=== PATIENT | male | born 1995 | race Caucasian/White ===

== ENCOUNTER 2018-04-24 11:01 | Emergency (ER) | payer SELFPAY ==
[2018-04-24] MEDS ORDERED: Dexamethasone 4 mg/ml Vial ONE (11:25)
[2018-04-24] MEDS ORDERED: Magnesium 2 GM/50 ML BAG (IN WATER) ONE (11:25)
[2018-04-24] MEDS ORDERED: methylPREDNISolone Sod Succ/PF 125 MG/2 ML VIAL ONE (11:27)
[2018-04-24 11:44] LABS: #Eosinphils 0.3 thou/uL (0.0-0.7); #Lymphocytes 1.2 thou/uL (1.20-3.40); #Monocytes 0.7 thou/uL (0.11-0.59); #Neutrophils 8.6 thou/uL (1.40-6.50); %Basophils 0.4 % (0.0-1.0); %Eosinophils 2.7 % (0.0-10.0); %Lymphocytes 11.3 % (21.0-51.0); %Monocytes 6.2 % (0.0-10.0); %Neutrophils 79.5 % (42.0-75.0); Hemoglobin 17.9 g/dL (14.0-18.0); Mean Corpuscular HGB CONC 32.9 g/dL (32.0-36.0); Mean Corpuscular Volume 91.2 fL (78.0-98.0); Mean Platelet Volume 6.9 fL (7.4-10.4); Platelet Count 231 thou/uL (130-400); RBC Distribution Width 12.6 % (11.5-14.5); Red Blood Cell (RBC) Count 5.96 mill/uL (4.70-6.10); White Blood Cell (WBC) Count 10.8 thou/uL (4.8-10.8)
--- NOTE | 2018-04-24 12:04 | RAD ---
FRONTAL VIEW CHEST: Date: 04/24/18 COMPARISON: 02/18/14. INDICATION: Difficulty breathing, new onset. FINDINGS: Comparing to 02/18/14, no significant interval change identified. There are leads overlying the chest , limiting visualization. IMPRESSION: No focal consolidation. POS: [facility]
[2018-04-24 12:10] LABS: ALT (SGPT) 13 U/L (8-55); AST (SGOT) 14 U/L (5-34); Albumin 5.1 g/dL (3.5-5.0); Alkaline Phosphatase 73 U/L (40-150); Anion Gap 12 mmol/L (10-20); BUN (Urea Nitrogen) 9 mg/dL (8.9-20.6); Bilirubin, Total 0.7 mg/dL (0.2-1.2); CK (CPK) 156 U/L (30-200); Calc. Creatinine Clearance 0 mL/min (70-130); Calcium 10.2 mg/dL (7.8-10.44); Carbon Dioxide 28 mmol/L (22-29); Chloride 106 mmol/L (98-107); Estimated GFR-MDRD Greater than 90; Globulin 2.7 g/dL (2.4-3.5); Glucose 104 mg/dL (70-105); Potassium 4.3 mmol/L (3.5-5.1); Protein, Total 7.8 g/dL (6.0-8.3); Sodium 142 mmol/L (136-145)
== END 2018-04-24 14:41 | disposition home or self-care (01) ==
LOC: ERS 11:01
DX: J45.901 Unspecified asthma with (acute) exacerbation (principal); F17.210 Nicotine dependence, cigarettes, uncomplicated; Z79.51 Long term (current) use of inhaled steroids
CPT/HCPCS: 71045; 80053; 82550; 83880; 84484; 85025; 93005; 94640; 96365; 96375; J1100; J2930; J3475; J7620

== ENCOUNTER 2018-05-14 20:32 | Observation (INO) | payer SELFPAY ==
[2018-05-14] MEDS ORDERED: predniSONE 20 MG TAB ONE (23:16)
[2018-05-15] MEDS ORDERED: Albuterol Sulfate 2.5 mg/3 ml Neb ONE (10:52)
--- NOTE | 2018-05-15 10:52 | PDOC.FPRHP ---
- History of Present Illness Chief Complaint: cough, wheezing History of Present Illness: 23 yo male here for asthma exacerbation. Reports he has problems with nighttime wheezing, cough, SOB for the past week. No fever, diarrhea, constipation, abd pain. Hx of asthma since middle school, endorses taking a breathing medication daily at that time, not sure of name. Currently uninsured so he was unable to see PCP since high school. Gets albuterol rescue prescriptions from ER. Reports he ran out of albuterol recently. Patient also went to ER the previous day for same problem, received duoneb x2, prednisone and a prescription for albuterol inhaler which he did not get. Also endorses increased stress in personal life, recently found out his sexual partner is . This is causing stress between partner and pts mom. ED Course: Mg duoneb solumedrol - Allergies/Adverse Reactions Allergies Allergy/AdvReac Type Severity Reaction Status Date / Time No Known Allergies Allergy Verified 05/15/18 11:40 - Home Medications Medication Instructions Recorded Confirmed Type guaiFENesin ER [Mucinex] 1,200 mg PO Q12HR #0 tab 02/19/14 05/15/18 Rx predniSONE 40 mg PO QAM-WM #5 tab 05/16/18 Rx Ipratropium/Albuterol Sulfate 3 ml NEB Q4H PRN neb 05/17/18 Rx [DuoNeb] Ipratropium/Albuterol Sulfate 3 ml NEB [id number] PRN #30 neb 05/17/18 Rx [DuoNeb] Mometasone 100 MCG [Asmanex HFA 1 puff INH BID-RT inh 05/17/18 Rx 100 mcg] - History PMHx: asthma PSHx: wisdom teeth FHx: Grandfather diabetes Social: 1pk cigarettes per week social EtOH use, 2 shots per weekend daily marijuana use, reports last use yesterday, denies heavy use also endorses hx of using cocaine in the last 3 weeks, and distant use of xanax - Review of Systems General: denies: fever/chills Eyes: denies: vision changes ENT: reports: nasal congestion Respiratory: reports: cough, shortness of breath Cardiovascular: denies: chest pain, palpitation Gastrointestinal: denies: nausea, vomiting, diarrhea, constipation Skin: denies: rashes Neurological: denies: numbness, syncope Psychological: reports: anxiety (recent stress) - Vital signs BP: [143/112] HR: [121] RR: [27] Tmax: [98.1] Pox: [95]% on [RA] Wt: [68kg] - Physical Exam Constitutional: NAD, awake, alert and oriented HEENT: normocephalic and atraumatic Neck: supple Heart: RRR, normal S1/S2 Lungs: other (diffuse wheezing) Abdomen: soft, non-tender Musculoskeletal: normal structure Neurological: no focal deficit Skin: no rash/lesions Psychiatric: normal mood and affect FMR H&P: Results - Radiology Interpretation Abdominal x-ray Status: image reviewed by me, report reviewed by me (No acute intrathoracic abnormality) FMR H&P: A/P - Problem List (1) Asthma exacerbation Status: Acute Code(s): J45.901 - UNSPECIFIED ASTHMA WITH (ACUTE) EXACERBATION (2) Tobacco abuse Status: Acute Code(s): Z72.0 - TOBACCO USE (3) Marijuana abuse Status: Acute Code(s): F12.10 - CANNABIS ABUSE, UNCOMPLICATED - Plan #Asthma exacerbation -s/p Mg in the ER -will continue with duonebs and steroids -discussed with clinical pharmacy for possible assistance with payment for ICS since pt is uninsured #polysubstance abuse FMR H&P: Upper Level - Plan Date/Time: 05/15/18 1039 I, [], have evaluated this patient and agree with findings/plan as outlined by engineer intern resident. Pertinent changes/additions are listed here. Addendum - Attending - Attending Attestation Date/Time: 05/15/18 8644 I personally evaluated the patient and discussed the management with Dr. Mejia. I agree with the History, Examination, Assessment and Plan documented above with any addition or exceptions noted below. the patient presents with a week long history of cough, shortness of breath and wheezing. He was seen in the er a few days ago but never picked up his prescriptions. He is out of his inhalers. Pt was sleeping when I came in and O2 sats are 87%. Will treat with nebs, steroids. Will restart inhalers and use O2 as needed.
[2018-05-15] MEDS ORDERED: predniSONE 20 MG TAB PO SCH (11:30)
[2018-05-15 11:52] VITALS: BMI 19.7
--- NOTE | 2018-05-16 05:26 | PDOC.FM ---
- Subjective Subjective: Patient reports improved wheezing and breathing. He has required nebs q4-5 hours. He said he felt he did better overnight than expected. - Objective MAR Reviewed: Yes Vital Signs & Weight: Vital Signs (12 hours) Temp Pulse Resp BP BP BP Pulse Ox 05/16/18 04:10 97.9 F 68 20 97/53 L 97/53 L 93 L 05/16/18 02:07 75 18 93 L 05/16/18 00:20 98.1 F 88 20 111/59 L 111/59 L 95 05/15/18 21:51 106 H 20 92 L 05/15/18 19:31 97.9 F 96 18 133/75 92 L 05/15/18 18:45 102 H 18 92 L Weight Weight 62.312 kg I&O: 05/14/18 05/15/18 05/16/18 06:59 06:59 06:59 Intake Total 670 Balance 670 Phys Exam - Physical Examination Constitutional: NAD Respiratory: no rhonchi, wheezing present Cardiovascular: RRR, no significant murmur Gastrointestinal: soft, non-tender, positive bowel sounds Musculoskeletal: no edema Neurological: non-focal Psychiatric: normal affect Skin: normal turgor Dx/Plan (1) Asthma exacerbation Code(s): J45.901 - UNSPECIFIED ASTHMA WITH (ACUTE) EXACERBATION Status: Acute (2) Marijuana abuse Code(s): F12.10 - CANNABIS ABUSE, UNCOMPLICATED Status: Acute (3) Tobacco abuse Code(s): Z72.0 - TOBACCO USE Status: Acute - Plan Plan: Asthma exacerbation -s/p Mg, solumedrol in the ER -continue with duonebs and steroids -discussed with clinical pharmacy for possible assistance with payment for ICS since pt is uninsured Polysubstance abuse Dispo: pending clinical improvement and case management to assist with access to outpatient asthma control inhalers Addendum - Attending - Attending Attestation Date/Time: 05/16/18 6406 I personally evaluated the patient and discussed the management with Dr. Rivas. I agree with the History, Examination, Assessment and Plan documented above with any addition or exceptions noted below. Patient still has wheezes in bilateral bases. He has required frequent nebs. Will continue current treatment. Will likely d/c tomorrow. Pt is unsure if he can get his meds as an outpt.
[2018-05-16] MEDS: predniSONE 20 MG TAB PO SCH (08:49)
[2018-05-16] MEDS ORDERED: Fluticasone Propionate HFA 44 MCG AER INH SCH (09:00)
[2018-05-16] MEDS ORDERED: Mometasone 100 MCG HFA INHALER INH SCH (11:00)
[2018-05-16] MEDS: Mometasone 100 MCG HFA INHALER INH SCH (20:53)
--- NOTE | 2018-05-17 05:53 | PDOC.FM ---
- Subjective Subjective: Mr. Wolff says he feels he is continuing to improve. Has nebulizer machine at mother's house but he is unable to get to this. - Objective MAR Reviewed: Yes Vital Signs & Weight: Vital Signs (12 hours) Temp Pulse Resp BP BP Pulse Ox 05/17/18 04:20 98.3 F 77 20 127/77 97 05/16/18 23:40 97.6 F 84 16 124/68 95 05/16/18 20:53 86 16 94 L 05/16/18 20:22 98.4 F 99 16 145/80 H 92 L Weight Weight 62.312 kg I&O: 05/15/18 05/16/18 05/17/18 06:59 06:59 06:59 Intake Total 2430 Balance 2430 Phys Exam - Physical Examination Constitutional: NAD mild expiratory wheeze Cardiovascular: RRR, no significant murmur Gastrointestinal: soft, non-tender, positive bowel sounds Musculoskeletal: no edema Neurological: non-focal Psychiatric: normal affect Skin: normal turgor Dx/Plan (1) Asthma exacerbation Code(s): J45.901 - UNSPECIFIED ASTHMA WITH (ACUTE) EXACERBATION Status: Acute (2) Marijuana abuse Code(s): F12.10 - CANNABIS ABUSE, UNCOMPLICATED Status: Acute (3) Tobacco abuse Code(s): Z72.0 - TOBACCO USE Status: Acute - Plan Plan: Asthma exacerbation -s/p Mg, solumedrol in the ER -continue with duonebs, mometasone and steroids -case management helping with assistance Polysubstance abuse Dispo: could likely discharge today. Will discuss case management. Addendum - Attending - Attending Attestation Date/Time: 05/17/18 1347 I personally evaluated the patient and discussed the management with Dr. Rivas I agree with the History, Examination, Assessment and Plan documented above with any addition or exceptions noted below.. Discussed resource for further outpatient care. Patient has rscue inhaler and po steroid in hand he sholud be able to leave . REC consider baseline peak flow for further accessment response to treatment and need to escalate treatment with ICS
[2018-05-17] MEDS: Mometasone 100 MCG HFA INHALER INH SCH (08:11)
[2018-05-17] MEDS: predniSONE 20 MG TAB PO SCH (09:08)
[2018-05-17 11:34] VITALS: BP 120/73; TEMP 97.6
--- NOTE | 2018-05-18 12:11 | DIS ---
DATE OF ADMISSION: 05/15/2018 DATE OF DISCHARGE: 05/17/2018 RESIDENT: Aniya Rivas DO. ADMITTING ATTENDING: Angel Cedeno MD. DISCHARGE ATTENDING: Navneet Cruz MD CONSULTS: None. PROCEDURES: None. PRIMARY DIAGNOSES: 1. Asthma exacerbation. 2. Polysubstance abuse. DISCHARGE MEDICATIONS: 1. Mucinex 1200 mg p.o. q.12 hours. 2. Prednisone 40 mg p.o. q.a.m. #5. 3. DuoNeb 3 mL nebs q.4 hours p.r.n. 4. Asmanex 1 puff inhaled b.i.d. DISCONTINUED MEDICATIONS: 1. Symbicort. HISTORY OF PRESENT ILLNESS: A 23-year-old male presented in an asthma exacerbation. He was seen previously in the ER, was given prescription for inhaler and prednisone; however, he was unable to pick these up. The patient is uninsured and financial issues can be a barrier to getting medications. The patient was admitted as the patient's saturations were decreased at times. The patient received DuoNeb while inpatient and his respiratory status continued to improve. The patient was discharged to continue p.o. steroids as well as given prescriptions for DuoNeb to use in his home nebulizer machine. Case Management was consulted considering the patient's financial status and to provide assistance in access to medications. Symbicort is unable to be prescribed due to cost barrier. The patient to continue using DuoNeb and albuterol at home. DISPOSITION: Stable. DISCHARGE INSTRUCTIONS: 1. Location: Home. 2. Diet: Regular. 3. Activity: As tolerated. 4. Follow up with PCP in 7 days. The patient will need to establish care at a new clinic as he does not have a PCP. Job ID: [id number] MTDD
== END 2018-05-17 13:29 | disposition home or self-care (01) ==
LOC: ERS 20:32 → 3SE 05-15 10:34
PROVIDERS: ADMIT Family Medicine; ATTEND Family Medicine
DX: J45.901 Unspecified asthma with (acute) exacerbation (principal); F17.210 Nicotine dependence, cigarettes, uncomplicated; F12.10 Cannabis abuse, uncomplicated; F41.9 Anxiety disorder, unspecified; F32.9 Major depressive disorder, single episode, unspecified
CPT/HCPCS: 71045; 87804; 90471; 90732; 93005; 94640; 94799; G0009; G0378; J2930; J3475; J7512; J7611; J7620